=== PATIENT | female | born 1965 | race Caucasian/White ===

== ENCOUNTER 2024-07-01 08:14 | Day surgery (SDC) | payer BC ==
[~2024-07-01 08:14] MED LIST: Sodium Chloride 0.9% 10 ML Syringe FLUSH PRN; Sodium Chloride 0.9% 2.5 ML Syringe FLUSH PRN; Sodium Chloride 0.9% 20 ML SDV IV PRN
[2024-07-01] MEDS: Lactated Ringers 1,000 ML IV SCH (09:16)
[2024-07-01] MEDS ORDERED: Lidocaine 2% 5 ML SDV ONE (09:21)
[2024-07-01] MEDS ORDERED: Propofol 200 MG/20 ML SDV ONE (09:21)
== END 2024-07-01 10:52 | disposition home or self-care (01) ==
LOC: MW.SDS 08:14
PROVIDERS: ATTEND Surgery
DX: Z12.11 Encounter for screening for malignant neoplasm of colon (principal); Z80.0 Family history of malignant neoplasm of digestive organs; Z79.899 Other long term (current) drug therapy; Z87.891 Personal history of nicotine dependence
CPT/HCPCS: 45378; J2704; J7120; J3490